=== PATIENT | male | born 1960 | race Caucasian/White ===

== ENCOUNTER 2020-11-19 15:35 | Inpatient (IN) | payer OTHER ==
[2020-11-19 16:27] VITALS: BMI 36.0
[2020-11-19] MEDS ORDERED: BISMUTH SUBSALICYLATE 524 MG/30 ML PO PRN (17:09)
[2020-11-19] MEDS ORDERED: MAGNESIUM HYDROX 2400MG/30ML ORAL SUSPENSION 30 ML CUP PO PRN (17:09)
[2020-11-19] MEDS ORDERED: ACETAMINOPHEN 325 MG TABLET (FP) PO PRN ×2 (17:09)
[2020-11-19] MEDS ORDERED: IBUPROFEN 400 MG TABLET (FP) PO PRN (17:09)
[2020-11-19] MEDS ORDERED: ONDANSETRON *ODT* 4 MG TABLET SL PRN (17:09)
[2020-11-19] MEDS ORDERED: MAG HYDROX/AL HYDROX/SIMETH 30 ML UNIT-DOSE CUP PO PRN (17:09)
[2020-11-19] MEDS ORDERED: MAGNESIUM CITRATE 300 ML BOTTLE PO PRN (17:09)
[2020-11-19] MEDS ORDERED: diazePAM 5 MG TABLET PO ONE (17:12)
[2020-11-19] MEDS: MELATONIN 5 MG TABLETS PO SCH (22:10)
[2020-11-19] MEDS: THIAMINE HCL 100 MG TABLET (FP) PO SCH (22:10)
[2020-11-19] MEDS: diazePAM 5 MG TABLET PO SCH (22:10)
[2020-11-19] MEDS: hydrOXYzine PAMOATE 25 MG CAPSULE (FP) PO PRN (22:13)
[2020-11-19] MEDS: METHOCARBAMOL 500 MG TABLET PO PRN (22:14)
[2020-11-20] MEDS: diazePAM 5 MG TABLET PO SCH ×4 (05:50→22:03)
[2020-11-20] MEDS ORDERED: ALBUTEROL SO4 HFA INHALER IH PRN (07:54)
[2020-11-20] MEDS: LISINOPRIL 10 MG TABLET PO SCH (10:12)
[2020-11-20] MEDS: PRENATAL VITAMINS W/ FOLIC ACID TABLET (FP) PO SCH (10:13)
[2020-11-20 10:47] LABS: HEMATOCRIT 33.7 % (35.4-49); HEMOGLOBIN 11.8 GM/dL (11.7-16.9); MCH 34.3 pg (25.7-33.7); MCHC 34.9 g/dl (32.0-35.9); MEAN CELL VOLUME 98.2 fl (80-96); MEAN PLT VOLUME 10.1 fl (7.5-11.1); PLATELET COUNT 53 10^3/uL (134-434); RBC 3.43 M/mm3 (4.00-5.60); RDW 14.9 % (11.9-15.9); WHITE BLOOD COUNT 4.2 K/mm3 (4.0-10.0)
[2020-11-20 10:52] LABS: ALBUMIN 3.1 g/dl (3.4-5.0); CALCIUM 8.7 mg/dL (8.5-10.1)
[2020-11-20 10:53] LABS: BLOOD UREA NITROGEN 11.4 mg/dL (7-18)
[2020-11-20 10:54] LABS: CREATININE 0.6 mg/dL (0.55-1.3)
[2020-11-20 10:55] LABS: BILIRUBIN,TOTAL 3.4 mg/dL (0.2-1)
[2020-11-20] MEDS: diazePAM 5 MG TABLET PO PRN (11:43)
[2020-11-20] MEDS: THIAMINE HCL 100 MG TABLET (FP) PO SCH (22:03)
[2020-11-20] MEDS: MELATONIN 5 MG TABLETS PO SCH (22:03)
[2020-11-21] MEDS: diazePAM 5 MG TABLET PO SCH ×3 (06:04→22:24)
[2020-11-21] MEDS: PRENATAL VITAMINS W/ FOLIC ACID TABLET (FP) PO SCH (10:11)
[2020-11-21] MEDS: LISINOPRIL 10 MG TABLET PO SCH (10:12)
[2020-11-21] MEDS: diazePAM 5 MG TABLET PO PRN ×2 (10:13→17:36)
[2020-11-21 12:14] LABS: BLOOD UREA NITROGEN 14.9 mg/dL (7-18)
[2020-11-21 12:16] LABS: CALCIUM 9.2 mg/dL (8.5-10.1)
[2020-11-21 12:17] LABS: INR 1.58 (0.83-1.09); PROTHROMBIN TIME (PATIENT) 18.9 SEC (9.7-13.0)
[2020-11-21 12:18] LABS: HEMATOCRIT 32.8 % (35.4-49); HEMOGLOBIN 11.5 GM/dL (11.7-16.9); MCH 34.6 pg (25.7-33.7); MCHC 35.1 g/dl (32.0-35.9); MEAN CELL VOLUME 98.5 fl (80-96); MEAN PLT VOLUME 10.6 fl (7.5-11.1); PLATELET COUNT 51 10^3/uL (134-434); RBC 3.33 M/mm3 (4.00-5.60); RDW 14.6 % (11.9-15.9); WHITE BLOOD COUNT 4.3 K/mm3 (4.0-10.0)
[2020-11-21 12:20] LABS: CREATININE 0.7 mg/dL (0.55-1.3)
[2020-11-21 12:22] LABS: BILIRUBIN,TOTAL 6.6 mg/dL (0.2-1); TOT PROT 8.4 g/dl (6.4-8.2)
[2020-11-21] MEDS: THIAMINE HCL 100 MG TABLET (FP) PO SCH (22:24)
[2020-11-21] MEDS: MELATONIN 5 MG TABLETS PO SCH (22:24)
[2020-11-21] MEDS: METHOCARBAMOL 500 MG TABLET PO PRN (22:25)
[2020-11-21] MEDS: MENTHOL/PHENOL 1 EACH UD MM PRN (22:26)
[2020-11-22] MEDS: diazePAM 5 MG TABLET PO SCH ×2 (05:53→17:38)
[2020-11-22] MEDS: LISINOPRIL 10 MG TABLET PO SCH (10:03)
[2020-11-22] MEDS: PRENATAL VITAMINS W/ FOLIC ACID TABLET (FP) PO SCH (10:03)
[2020-11-22] MEDS: diazePAM 5 MG TABLET PO PRN ×2 (10:07→14:32)
[2020-11-22] MEDS: hydrOXYzine PAMOATE 25 MG CAPSULE (FP) PO PRN ×2 (13:16→22:03)
[2020-11-22] MEDS: METHOCARBAMOL 500 MG TABLET PO PRN (17:39)
[2020-11-22] MEDS: MENTHOL/PHENOL 1 EACH UD MM PRN ×2 (17:43→22:12)
[2020-11-22] MEDS: THIAMINE HCL 100 MG TABLET (FP) PO SCH (22:03)
[2020-11-22] MEDS: MELATONIN 5 MG TABLETS PO SCH (22:03)
[2020-11-23] MEDS ORDERED: diazePAM 5 MG TABLET PO ONE (06:00)
[2020-11-23] MEDS: diazePAM 5 MG TABLET PO SCH ×2 (07:01→17:55)
[2020-11-23] MEDS: PRENATAL VITAMINS W/ FOLIC ACID TABLET (FP) PO SCH (10:35)
[2020-11-23] MEDS: LISINOPRIL 10 MG TABLET PO SCH (10:35)
[2020-11-23] MEDS: hydrOXYzine PAMOATE 25 MG CAPSULE (FP) PO PRN ×2 (10:35→22:33)
[2020-11-23] MEDS: LACTULOSE 20 GM/30 ML UDC (FOR ORAL USE ONLY) PO SCH ×3 (15:04→22:33)
[2020-11-23] MEDS: MENTHOL/PHENOL 1 EACH UD MM PRN (19:35)
[2020-11-23] MEDS: THIAMINE HCL 100 MG TABLET (FP) PO SCH (22:33)
[2020-11-23] MEDS: MELATONIN 5 MG TABLETS PO SCH (22:33)
[2020-11-23] MEDS: METHOCARBAMOL 500 MG TABLET PO PRN (22:35)
[2020-11-24] MEDS ORDERED: diazePAM 5 MG TABLET PO ONE (06:00)
[2020-11-24] MEDS: LACTULOSE 20 GM/30 ML UDC (FOR ORAL USE ONLY) PO SCH ×4 (10:32→22:40)
[2020-11-24] MEDS: PRENATAL VITAMINS W/ FOLIC ACID TABLET (FP) PO SCH (10:33)
[2020-11-24] MEDS: LISINOPRIL 10 MG TABLET PO SCH (10:33)
[2020-11-24] MEDS: MENTHOL/PHENOL 1 EACH UD MM PRN (19:21)
[2020-11-24] MEDS: MELATONIN 5 MG TABLETS PO SCH (22:40)
[2020-11-24] MEDS: THIAMINE HCL 100 MG TABLET (FP) PO SCH (22:40)
[2020-11-24] MEDS: hydrOXYzine PAMOATE 25 MG CAPSULE (FP) PO PRN (22:40)
[2020-11-24] MEDS: METHOCARBAMOL 500 MG TABLET PO PRN (22:40)
[2020-11-25] MEDS: LISINOPRIL 10 MG TABLET PO SCH (10:40)
[2020-11-25] MEDS: LACTULOSE 20 GM/30 ML UDC (FOR ORAL USE ONLY) PO SCH ×4 (10:40→22:31)
[2020-11-25] MEDS: PRENATAL VITAMINS W/ FOLIC ACID TABLET (FP) PO SCH (10:40)
[2020-11-25 16:04] LABS: BASO % 1.5 % (0-2.0); EOS % 1.8 % (0-4.5); HEMATOCRIT 32.3 % (35.4-49); HEMOGLOBIN 10.9 GM/dL (11.7-16.9); LYMPH % 29.9 % (8-40); MCH 34.5 pg (25.7-33.7); MCHC 33.9 g/dl (32.0-35.9); MEAN CELL VOLUME 101.7 fl (80-96); MEAN PLT VOLUME 10.6 fl (7.5-11.1); MONO % 16.1 % (3.8-10.2); NEUT % 50.7 % (42.8-82.8); PLATELET COUNT 73 10^3/uL (134-434); RBC 3.17 M/mm3 (4.00-5.60); RDW 14.8 % (11.9-15.9)
[2020-11-25 16:07] LABS: INR 1.51 (0.83-1.09); PROTHROMBIN TIME (PATIENT) 18.1 SEC (9.7-13.0)
[2020-11-25 16:47] LABS: ALBUMIN 2.9 g/dl (3.4-5.0); BLOOD UREA NITROGEN 30.3 mg/dL (7-18); CALCIUM 9.2 mg/dL (8.5-10.1)
[2020-11-25 16:52] LABS: BILIRUBIN,TOTAL 4.8 mg/dL (0.2-1); TOT PROT 8.5 g/dl (6.4-8.2)
[2020-11-25] MEDS: THIAMINE HCL 100 MG TABLET (FP) PO SCH (22:27)
[2020-11-25] MEDS: MELATONIN 5 MG TABLETS PO SCH (22:27)
[2020-11-26] MEDS: LISINOPRIL 10 MG TABLET PO SCH (09:45)
[2020-11-26] MEDS: PRENATAL VITAMINS W/ FOLIC ACID TABLET (FP) PO SCH (09:45)
[2020-11-26] MEDS: LACTULOSE 20 GM/30 ML UDC (FOR ORAL USE ONLY) PO SCH ×4 (09:45→21:21)
[2020-11-26] MEDS: MELATONIN 5 MG TABLETS PO SCH (21:20)
[2020-11-26] MEDS: THIAMINE HCL 100 MG TABLET (FP) PO SCH (21:20)
[2020-11-27] MEDS: LISINOPRIL 10 MG TABLET PO SCH (09:58)
[2020-11-27] MEDS: LACTULOSE 20 GM/30 ML UDC (FOR ORAL USE ONLY) PO SCH ×4 (09:58→21:38)
[2020-11-27] MEDS: PRENATAL VITAMINS W/ FOLIC ACID TABLET (FP) PO SCH (09:58)
[2020-11-27 14:56] LABS: HEMATOCRIT 32.8 % (35.4-49); HEMOGLOBIN 11.1 GM/dL (11.7-16.9); MCH 34.1 pg (25.7-33.7); MCHC 33.7 g/dl (32.0-35.9); MEAN CELL VOLUME 101.2 fl (80-96); MEAN PLT VOLUME 10.2 fl (7.5-11.1); PLATELET COUNT 87 10^3/uL (134-434); RBC 3.24 M/mm3 (4.00-5.60); RDW 14.4 % (11.9-15.9); WHITE BLOOD COUNT 5.4 K/mm3 (4.0-10.0)
[2020-11-27 15:00] LABS: CALCIUM 9.1 mg/dL (8.5-10.1)
[2020-11-27 15:02] LABS: BLOOD UREA NITROGEN 39.2 mg/dL (7-18)
[2020-11-27 15:04] LABS: INR 1.51 (0.83-1.09); PROTHROMBIN TIME (PATIENT) 18.1 SEC (9.7-13.0)
[2020-11-27 15:05] LABS: CREATININE 1.8 mg/dL (0.55-1.3)
[2020-11-27 15:07] LABS: BILIRUBIN,TOTAL 3.8 mg/dL (0.2-1); TOT PROT 8.7 g/dl (6.4-8.2)
[2020-11-27] MEDS: MELATONIN 5 MG TABLETS PO SCH (21:38)
[2020-11-27] MEDS: THIAMINE HCL 100 MG TABLET (FP) PO SCH (21:38)
[2020-11-28] MEDS: LISINOPRIL 10 MG TABLET PO SCH (10:08)
[2020-11-28] MEDS: PRENATAL VITAMINS W/ FOLIC ACID TABLET (FP) PO SCH (10:08)
[2020-11-28] MEDS: LACTULOSE 20 GM/30 ML UDC (FOR ORAL USE ONLY) PO SCH ×4 (10:08→18:23)
[2020-11-28] MEDS: MELATONIN 5 MG TABLETS PO SCH (21:39)
[2020-11-28] MEDS: THIAMINE HCL 100 MG TABLET (FP) PO SCH (21:39)
[2020-11-29] MEDS: LACTULOSE 20 GM/30 ML UDC (FOR ORAL USE ONLY) PO SCH ×4 (06:09→17:49)
[2020-11-29] MEDS: LISINOPRIL 10 MG TABLET PO SCH (09:52)
[2020-11-29] MEDS: PRENATAL VITAMINS W/ FOLIC ACID TABLET (FP) PO SCH (09:52)
[2020-11-29] MEDS: guaiFENesin 200 MG/10 ML 10 ML UNIT-DOSE CUPS PO PRN (09:53)
[2020-11-29] MEDS: MELATONIN 5 MG TABLETS PO SCH (21:01)
[2020-11-29] MEDS: THIAMINE HCL 100 MG TABLET (FP) PO SCH (21:01)
[2020-11-30] MEDS: LACTULOSE 20 GM/30 ML UDC (FOR ORAL USE ONLY) PO SCH ×4 (06:23→17:09)
[2020-11-30] MEDS: PRENATAL VITAMINS W/ FOLIC ACID TABLET (FP) PO SCH (09:42)
[2020-11-30] MEDS: LISINOPRIL 10 MG TABLET PO SCH (09:42)
[2020-11-30] MEDS: guaiFENesin 200 MG/10 ML 10 ML UNIT-DOSE CUPS PO PRN (14:18)
[2020-11-30] MEDS: MELATONIN 5 MG TABLETS PO SCH (21:14)
[2020-11-30] MEDS: THIAMINE HCL 100 MG TABLET (FP) PO SCH (21:14)
[2020-11-30] MEDS: BENZOCAINE/MENTH/CETYLPYRD CL 1 EACH LOZENGE MM PRN (22:10)
[2020-12-01] MEDS: LACTULOSE 20 GM/30 ML UDC (FOR ORAL USE ONLY) PO SCH ×4 (06:29→19:09)
[2020-12-01] MEDS: LISINOPRIL 10 MG TABLET PO SCH (09:20)
[2020-12-01] MEDS: PRENATAL VITAMINS W/ FOLIC ACID TABLET (FP) PO SCH (09:20)
[2020-12-01] MEDS: MELATONIN 5 MG TABLETS PO SCH (21:32)
[2020-12-01] MEDS: THIAMINE HCL 100 MG TABLET (FP) PO SCH (21:32)
[2020-12-01] MEDS: BENZOCAINE/MENTH/CETYLPYRD CL 1 EACH LOZENGE MM PRN (22:41)
[2020-12-02] MEDS: LACTULOSE 20 GM/30 ML UDC (FOR ORAL USE ONLY) PO SCH ×4 (06:34→17:45)
[2020-12-02] MEDS: PRENATAL VITAMINS W/ FOLIC ACID TABLET (FP) PO SCH (10:24)
[2020-12-02] MEDS: LISINOPRIL 10 MG TABLET PO SCH (10:38)
[2020-12-02] MEDS: guaiFENesin 200 MG/10 ML 10 ML UNIT-DOSE CUPS PO PRN (13:26)
[2020-12-02] MEDS: THIAMINE HCL 100 MG TABLET (FP) PO SCH (21:24)
[2020-12-02] MEDS: METHOCARBAMOL 500 MG TABLET PO PRN (21:24)
[2020-12-02] MEDS: MELATONIN 5 MG TABLETS PO SCH (21:24)
[2020-12-02] MEDS: MENTHOL/PHENOL 1 EACH UD MM PRN (22:08)
[2020-12-02] MEDS ORDERED: ACETAMINOPHEN 325 MG TABLET (FP) ONE (22:11)
[2020-12-03] MEDS: LACTULOSE 20 GM/30 ML UDC (FOR ORAL USE ONLY) PO SCH ×4 (06:21→18:16)
[2020-12-03] MEDS: PRENATAL VITAMINS W/ FOLIC ACID TABLET (FP) PO SCH (09:57)
[2020-12-03] MEDS: LISINOPRIL 10 MG TABLET PO SCH (09:57)
[2020-12-03] MEDS ORDERED: PT OWN MED DRAWER 7, Y5N ONE (12:32)
[2020-12-03] MEDS: THIAMINE HCL 100 MG TABLET (FP) PO SCH (21:26)
[2020-12-03] MEDS: METHOCARBAMOL 500 MG TABLET PO PRN (21:26)
[2020-12-03] MEDS: MELATONIN 5 MG TABLETS PO SCH (21:26)
[2020-12-03] MEDS: BENZOCAINE/MENTH/CETYLPYRD CL 1 EACH LOZENGE MM PRN (21:29)
[2020-12-04] MEDS: LACTULOSE 20 GM/30 ML UDC (FOR ORAL USE ONLY) PO SCH ×4 (06:18→17:54)
[2020-12-04] MEDS: LISINOPRIL 10 MG TABLET PO SCH (10:06)
[2020-12-04] MEDS: PRENATAL VITAMINS W/ FOLIC ACID TABLET (FP) PO SCH (10:06)
[2020-12-04] MEDS: MELATONIN 5 MG TABLETS PO SCH (21:18)
[2020-12-04] MEDS: THIAMINE HCL 100 MG TABLET (FP) PO SCH (21:18)
[2020-12-04] MEDS: METHOCARBAMOL 500 MG TABLET PO PRN (21:19)
[2020-12-04] MEDS: BENZOCAINE/MENTH/CETYLPYRD CL 1 EACH LOZENGE MM PRN (21:22)
[2020-12-05] MEDS: LACTULOSE 20 GM/30 ML UDC (FOR ORAL USE ONLY) PO SCH ×4 (06:28→18:53)
[2020-12-05] MEDS: PRENATAL VITAMINS W/ FOLIC ACID TABLET (FP) PO SCH (09:38)
[2020-12-05] MEDS: LISINOPRIL 10 MG TABLET PO SCH (09:39)
[2020-12-05 10:56] LABS: HEMATOCRIT 35.1 % (35.4-49); HEMOGLOBIN 11.9 GM/dL (11.7-16.9); MCH 34.4 pg (25.7-33.7); MCHC 33.9 g/dl (32.0-35.9); MEAN CELL VOLUME 101.4 fl (80-96); MEAN PLT VOLUME 11.2 fl (7.5-11.1); PLATELET COUNT 127 10^3/uL (134-434); RBC 3.46 M/mm3 (4.00-5.60); RDW 13.7 % (11.9-15.9); WHITE BLOOD COUNT 5.4 K/mm3 (4.0-10.0)
[2020-12-05 11:03] LABS: INR 1.65 (0.83-1.09); PROTHROMBIN TIME (PATIENT) 20.4 SEC (9.7-13.0)
[2020-12-05] MEDS ORDERED: PT OWN MED DRAWER 7, Y5N ONE (12:44)
[2020-12-05] MEDS: MELATONIN 5 MG TABLETS PO SCH (21:42)
[2020-12-05] MEDS: THIAMINE HCL 100 MG TABLET (FP) PO SCH (21:43)
[2020-12-05] MEDS: METHOCARBAMOL 500 MG TABLET PO PRN (21:44)
[2020-12-06] MEDS: LACTULOSE 20 GM/30 ML UDC (FOR ORAL USE ONLY) PO SCH ×4 (06:23→17:50)
[2020-12-06] MEDS: PRENATAL VITAMINS W/ FOLIC ACID TABLET (FP) PO SCH (09:55)
[2020-12-06] MEDS: LISINOPRIL 10 MG TABLET PO SCH (09:55)
[2020-12-06] MEDS: MELATONIN 5 MG TABLETS PO SCH (21:29)
[2020-12-06] MEDS: THIAMINE HCL 100 MG TABLET (FP) PO SCH (21:29)
[2020-12-07] MEDS: LACTULOSE 20 GM/30 ML UDC (FOR ORAL USE ONLY) PO SCH ×4 (06:23→18:00)
[2020-12-07] MEDS: PRENATAL VITAMINS W/ FOLIC ACID TABLET (FP) PO SCH (09:54)
[2020-12-07] MEDS: LISINOPRIL 10 MG TABLET PO SCH (09:54)
[2020-12-07] MEDS: MELATONIN 5 MG TABLETS PO SCH (21:41)
[2020-12-07] MEDS: METHOCARBAMOL 500 MG TABLET PO PRN (21:41)
[2020-12-07] MEDS: THIAMINE HCL 100 MG TABLET (FP) PO SCH (21:41)
[2020-12-08] MEDS: LACTULOSE 20 GM/30 ML UDC (FOR ORAL USE ONLY) PO SCH ×4 (06:32→18:03)
[2020-12-08] MEDS: LISINOPRIL 10 MG TABLET PO SCH (09:46)
[2020-12-08] MEDS: PRENATAL VITAMINS W/ FOLIC ACID TABLET (FP) PO SCH (09:46)
[2020-12-08] MEDS: THIAMINE HCL 100 MG TABLET (FP) PO SCH (21:24)
[2020-12-08] MEDS: METHOCARBAMOL 500 MG TABLET PO PRN (21:24)
[2020-12-08] MEDS: MELATONIN 5 MG TABLETS PO SCH (21:24)
[2020-12-09] MEDS: LACTULOSE 20 GM/30 ML UDC (FOR ORAL USE ONLY) PO SCH ×4 (06:36→18:53)
[2020-12-09] MEDS: LISINOPRIL 10 MG TABLET PO SCH (09:58)
[2020-12-09] MEDS: PRENATAL VITAMINS W/ FOLIC ACID TABLET (FP) PO SCH (09:59)
[2020-12-09] MEDS: THIAMINE HCL 100 MG TABLET (FP) PO SCH (21:22)
[2020-12-09] MEDS: MELATONIN 5 MG TABLETS PO SCH (21:22)
[2020-12-09] MEDS: METHOCARBAMOL 500 MG TABLET PO PRN (21:23)
[2020-12-10] MEDS: LACTULOSE 20 GM/30 ML UDC (FOR ORAL USE ONLY) PO SCH ×4 (06:21→17:58)
[2020-12-10] MEDS: LISINOPRIL 10 MG TABLET PO SCH (09:52)
[2020-12-10] MEDS: PRENATAL VITAMINS W/ FOLIC ACID TABLET (FP) PO SCH (09:52)
[2020-12-10] MEDS: MELATONIN 5 MG TABLETS PO SCH (21:25)
[2020-12-10] MEDS: THIAMINE HCL 100 MG TABLET (FP) PO SCH (21:25)
[2020-12-10] MEDS: METHOCARBAMOL 500 MG TABLET PO PRN (21:26)
[2020-12-10] MEDS: BENZOCAINE/MENTH/CETYLPYRD CL 1 EACH LOZENGE MM PRN (23:27)
[2020-12-11] MEDS: LACTULOSE 20 GM/30 ML UDC (FOR ORAL USE ONLY) PO SCH ×2 (06:39→09:36)
[2020-12-11 06:49] VITALS: TEMP 97.3
[2020-12-11 09:00] VITALS: BP 131/73; PULSE 88
[2020-12-11] MEDS: PRENATAL VITAMINS W/ FOLIC ACID TABLET (FP) PO SCH (09:36)
[2020-12-11] MEDS: LISINOPRIL 10 MG TABLET PO SCH (09:36)
== END 2020-12-11 09:38 | disposition home or self-care (01) | DRG 895 ==
LOC: YASAS 15:35 → Y3N 17:50 → Y3E 11-26 18:35
PROVIDERS: ADMIT Allergy & Immunology; ATTEND Allergy & Immunology
PROC: HZ2ZZZZ Detoxification Services for Substance Abuse Treatment (ICD-10-PCS; 2020-11-19)
PROC: HZ42ZZZ Group Counseling for Substance Abuse Treatment, Cognitive-Behavioral (ICD-10-PCS; principal; 2020-11-26)
DX: F19.20 Other psychoactive substance dependence, uncomplicated (principal); E72.20 Disorder of urea cycle metabolism, unspecified; G40.509 Epileptic seizures related to external causes, not intractable, without status epilepticus; F10.20 Alcohol dependence, uncomplicated; F10.220 Alcohol dependence with intoxication, uncomplicated; G62.9 Polyneuropathy, unspecified; I10 Essential (primary) hypertension; J45.909 Unspecified asthma, uncomplicated; Z87.891 Personal history of nicotine dependence; Z98.890 Other specified postprocedural states
CPT/HCPCS: 36415; 80053; 82140; 85025; 85027; 85610; 86780; C9803; U0003; U0005